=== PATIENT | female | born 1960 | race Asian ===

== ENCOUNTER 2023-12-20 06:54 | Day surgery (SDC) | payer MEDICAID, OTHER ==
[~2023-12-20] VITALS: Ht 160 cm; Wt 59.0 kg
[2023-12-20] MEDS ORDERED: fentaNYL CITRATE/PF 100 MCG/2 ML AMP ONE (07:18)
[2023-12-20] MEDS ORDERED: MIDAZOLAM HCL 5 MG/5 ML VIAL ONE ×2 (07:18→09:48)
[2023-12-20 13:58] VITALS: O2SAT 99
[2023-12-20 14:46] VITALS: BP_SYST 126; PULSE 73; RESP 18
== END 2023-12-20 10:44 | disposition home or self-care (01) ==
LOC: SDS 06:54 → SMU 06:54 → SDS 10:44
PROVIDERS: ATTEND Internal Medicine
DX: K59.00 Constipation, unspecified (principal); K29.50 Unspecified chronic gastritis without bleeding; K21.9 Gastro-esophageal reflux disease without esophagitis; K57.30 Diverticulosis of large intestine without perforation or abscess without bleeding; K64.8 Other hemorrhoids; Z98.890 Other specified postprocedural states
CPT/HCPCS: 45378; 43239; 99152; 87081; 36415; 88305; 88312; 88313; G0378; J2250; J3010